=== PATIENT | male | born 1980 | race Caucasian/White ===

== ENCOUNTER 2017-03-11 14:04 | Emergency (ER) | payer OTHER ==
--- NOTE | 2017-03-11 14:43 | ER Document Report ---
ED Psych Disorder / Suicide - General Chief Complaint: Psych Problem Stated Complaint: IVC WITH PAPERS Time Seen by Provider: 03/11/17 14:26 Notes: Patient is a 36-year-old male who presents emergency department with law enforcement on IVC papers after a incident at his family home. Per paperwork patient threatened a JAYCEE with a handgun saying today was the day indicating a desire to harm himself in those around him. Patient states that he was tased in order to safely restrain him. Otherwise he denies any pain. Admits to mild discomfort where the taser hit him but otherwise denies any chest pain, back pain. Regarding mental health, patient states that he does have a history of PTSD and depression and daily alcohol use. Patient withholding details about how much alcohol he normally drinks and if he drinks every single day. His states that he does drink quite frequently and no specific alcohol. Otherwise denies any drug use or history of IV drug use. Patient has been noncompliant with home medications that he takes for depression and anxiety. Currently at this time he denies any suicidal ideations. - Related Data Allergies/Adverse Reactions: ibuprofen Allergy (Verified 03/11/17 14:31) Past Medical History - Social History Smoking Status: Current Every Day Smoker Frequency of alcohol use: Heavy Drug Abuse: None Family History: Reviewed & Not Pertinent Patient has suicidal ideation: Yes Patient has homicidal ideation: No Renal/ Medical History: Denies: Hx Peritoneal Dialysis Review of Systems - Review of Systems Constitutional: No symptoms reported EENT: No symptoms reported Cardiovascular: No symptoms reported Respiratory: No symptoms reported Gastrointestinal: No symptoms reported Genitourinary: No symptoms reported Musculoskeletal: No symptoms reported Skin: See HPI Neurological/Psychological: See HPI Physical Exam - Vital signs Vitals: Temp Pulse Resp BP Pulse Ox 97.6 F 98 16 154/79 H 94 03/11/17 17:11 03/11/17 17:11 03/11/17 17:11 03/11/17 17:11 03/11/17 17:11 - Notes Notes: PHYSICAL EXAM GENERAL: Alert, interacts well. HEAD: Normocephalic, atraumatic. EYES: Pupils equal, round, and reactive to light. Extraocular movements intact. ENT: Oral mucosa moist, tongue midline. NECK: Full range of motion. Supple. Trachea midline. LUNGS: Clear to auscultation bilaterally, no wheezes, rales, or rhonchi. No respiratory distress. HEART: Regular rate and rhythm. No murmurs, gallops, or rubs. ABDOMEN: Soft, nondistended, nontender. No guarding, rebound, or rigidity.. Bowel sounds present in all 4 quadrants. EXTREMITIES: Moves all 4 extremities spontaneously. No edema, radial and dorsalis pedis pulses 2/4 bilaterally. No cyanosis. NEUROLOGICAL: Alert and oriented x4. Normal speech. PSYCH: Irritable but compliant and cooperative. Admits to suicidal ideations over the course of the week but currently does not have a plan since he is in the hospital. SKIN: Warm, dry, normal turgor. First-degree irritation noted on the ulnar surface of the left forearm is nontender without any active drainage or bleeding. Course - Re-evaluation Re-evalutation: 03/11/17 1500 Patient is a 36-year-old male who presents emergency department for IVC evaluation. Currently medically cleared. Relaxing comfortably in his room just requesting something to drink. Regarding the irritation of his forearm, this is likely regarding the taser from earlier today. Discussed with patient that we will assist him to keep the area clean and otherwise can be dressed as needed with Band-Aids. 03/11/17 18:50 Received medication recommendations from mental health team who are recommending discontinuation of his home Wellbutrin, Lunesta, Zoloft. Will continue clonidine, Zyprexa and Cogentin and patient will stay in the department for reevaluation in the morning. Patient agreeable with plan and is calm and cooperative at this time. - Vital Signs Vital signs: Temp Pulse Resp BP Pulse Ox 97.6 F 98 16 154/79 H 94 03/11/17 17:11 03/11/17 17:11 03/11/17 17:11 03/11/17 17:11 03/11/17 17:11 - Laboratory Result Diagrams: 03/11/17 14:50 03/11/17 14:50 Laboratory results interpreted by me: 03/11/17 03/11/17 03/11/17 14:50 14:50 14:50 WBC 11.9 H Seg Neutrophils % 87.4 H Lymphocytes % 6.7 L Absolute Neutrophils 10.4 H AST 77 H ALT 94 H Urine Protein 100 H Salicylates < 1.0 L Acetaminophen < 10 L - EKG Interpretation by Me EKG shows normal: Sinus rhythm Rate: Normal Rhythm: NSR When compared to previous EKG there are: No significant change Discharge - Discharge Clinical Impression: Suicidal ideations Depression Qualifiers: Depression Type: unspecified Qualified Code(s): F32.9 - Major depressive disorder, single episode, unspecified Condition: Stable Disposition: PSYCH HOSP/UNIT
[2017-03-11 15:06] LABS: ABSOLUTE LYMPHOCYTES (AUTO) 0.8 10^3/uL (0.5-4.7); ABSOLUTE MONOCYTES (AUTO) 0.7 10^3/uL (0.1-1.4); ABSOLUTE NEUT (AUTO) 10.4 10^3/uL (1.7-8.2); BASOPHILS % (AUTO) 0.2 % (0-2); EOSINOPHILS % (AUTO) 0.1 % (0-6); HEMATOCRIT 45.2 % (37.9-51.0); HEMOGLOBIN 15.9 g/dL (13.5-17.0); HGB HCT DIFFERENCE 2.5; LYMPHOCYTES % (AUTO) 6.7 % (13-45); MEAN CORPUSCULAR HEMOGLOBIN 32.8 pg (27.0-33.4); MEAN CORPUSCULAR HGB CONC 35.2 g/dL (32.0-36.0); MEAN CORPUSCULAR VOLUME 93 fl (80-97); MONOCYTES % (AUTO) 5.6 % (3-13); RED BLOOD COUNT 4.85 10^6/uL (4.35-5.55); RED CELL DISTRIBUTION WIDTH 13.4 % (11.5-14.0); SEGMENTED NEUTROPHILS % (AUTO) 87.4 % (42-78); WHITE BLOOD COUNT 11.9 10^3/uL (4.0-10.5)
[2017-03-11 15:33] LABS: ALANINE AMINOTRANSFERASE 94 U/L (21-72); ALCOHOL 253 mg/dL (NONE DETECTED); ALKALINE PHOSPHATASE 90 U/L (38-126); ANION GAP 16 (5-19); ASPARTATE AMINO TRANSFERASE 77 U/L (17-59); BILIRUBIN,DIRECT 0.4 mg/dL (0.0-0.4); BILIRUBIN,TOTAL 0.7 mg/dL (0.2-1.3); BLOOD UREA NITROGEN 11 mg/dL (7-20); CALCIUM 9.4 mg/dL (8.4-10.2); CARBON DIOXIDE 26 mmol/L (22-30); CHLORIDE 101 mmol/L (98-107); CREATININE RESULT 0.77 mg/dL (0.52-1.25); GLUCOSE 105 mg/dL (75-110); POTASSIUM 4.3 mmol/L (3.6-5.0); SODIUM 143.2 mmol/L (137-145); TOTAL PROTEIN 7.8 g/dL (6.3-8.2)
[2017-03-11 16:27] LABS: APPEARANCE,URINE CLEAR; BILIRUBIN,URINE NEGATIVE (NEGATIVE); GLUCOSE, URINE NEGATIVE (NEGATIVE); KETONES,URINE NEGATIVE (NEGATIVE); LEUKOCYTE ESTERASE,URINE NEGATIVE (NEGATIVE); NITRITE,URINE NEGATIVE (NEGATIVE); PROTEIN,URINE 100 mg/dL (NEGATIVE); URINE SPECIFIC GRAVITY 1.011; UROBILINOGEN,URINE NEGATIVE mg/dL (<2.0)
[2017-03-11 16:53] LABS: URINE BARBITURATES SCREEN NEGATIVE; URINE METHADONE SCREEN NEGATIVE; URINE OPIATES LOW NEGATIVE; URINE PHENCYCLIDINE SCREEN NEGATIVE
[2017-03-11] MEDS ORDERED: OLANZAPINE 5 MG TABLET PO ONE (18:10)
[2017-03-11] MEDS ORDERED: CLONIDINE HCL 0.1 MG TABLET PO ONE (18:10)
[2017-03-11] MEDS ORDERED: BENZTROPINE MESYLATE 1 MG TABLET PO ONE (18:10)
--- NOTE | 2017-03-11 19:43 | EKG REPORT ---
SEVERITY:- NORMAL ECG - SINUS RHYTHM : Confirmed by: Phil Russell MD 11-Mar-2017 19:42:57
[2017-03-11] MEDS ORDERED: CLONIDINE HCL 0.1 MG TABLET PO SCH (22:00)
[2017-03-12] MEDS ORDERED: OLANZAPINE 5 MG TABLET PO SCH (10:00)
[2017-03-12] MEDS ORDERED: BENZTROPINE MESYLATE 1 MG TABLET PO SCH (10:00)
--- NOTE | 2017-03-12 10:47 | ER Document Report ---
Doctor's Note Notes: 03/12/17 10:46 Rounds: Chart reviewed and patient interviewed. Patient acknowledges drinking heavily. His alcohol level was 253. Only other lab tests abnormal was a white count of 11,900 which is not clinically significant in this patient. Vital signs are all normal. Patient appears to be medically stable for transfer or discharge. Maye Durant MD
[2017-03-12 13:24] VITALS: BP 138/77
--- NOTE | 2017-03-13 19:05 | PSYCHOLOGICAL NOTE ---
Psych Note - Psych Note Psych Note: Patient is a 36 year old male in the ED on IVC for alcohol intoxication, SI, having a loaded weapon on him and LE concern he was going to discharge it on them. Patient reported feeling groggy today. He denied current SI/HI. He identified he remembered everything from yesterday and why he is in the ED. He stated he needs help with not wanting alcohol. His was present and also identified she felt the main issue was substance abuse, specifically alcohol. Patient and identified patient insurance is [employer]. Diagnosis: 303.90 (F10.20) Alcohol Use Disorder, Severe 309.81 (F43.10) Posttraumatic Stress Disorder by History Impression/Plan: Recommendation to maintain IVC given medication changes took place yesterday and him just getting a full days of those changes with this morning administration. Will continue seeking placement. Consulted with Dr. Perez regarding the management and care of patient. ED Physician in agreement with recommendation.
--- NOTE | 2017-03-13 19:23 | PSYCHOLOGICAL NOTE ---
Psych Note - Psych Note Psych Note: Patient is a 36-year-old male brought to the Emergency Department, under IVC, by law enforcement. Patient and reported patient was texting his neighbor making suicidal statements and the neighbor contacted his who in turn contacted the patients who was at work. [facility] was contacted and when they were informed the patient was armed with a gun they refused to attend the scene. [facility] [employer] contacted law enforcement who responded to the wifes home. Patient reported law enforcement used a taser on him after arriving on scene. He initially denied he made any movements precipitating the deployment of the taser but eventually admitted he reached his arm around towards his back to scratch an itch where he had a gun holstered. He indicated he understood why law enforcement felt like they needed to deploy the taser. He reported he was drinking and admitted he had suicidal ideations and the only thing keeping him from acting on the ideations was not wanting his daughter to find him when she returned from school. Patient reported he was a [employer] who was discharged in October of 2015. He reported he has been to the [facility] in [facility]. He indicated he was prescribed Wellbutrin, Zoloft, Lunesta and Clonidine but reported he had not taken any of his medications in the last five days. He reported his medications had been the same for several months, but he was not consistent in taking them. He reported previous passive suicidal ideations with no action but endorsed current suicidal ideations with plans to use a gun and access to weapons. Patient denied previous psychiatric inpatient hospitalizations. Patient reported smoking marijuana with the last time being a few weeks ago. Patient indicated he drinks a 12 pack of beer daily and has been drinking at this amount since 2009. Patient reported current stressors to include separation from his , since August, and homelessness. Patients at bedside during interview. Patients reported both of their children resided solely with her since the separation. Patient indicated he had been drinking about a beer an hour since the morning. Intake serum alcohol was 253 as indicated by lab results. Patient was alert and oriented to person, place, time and circumstance. Mood was tearful, guarded and irritated. Affect was mood congruent. He denied auditory/visual hallucinations. No delusions were noted. Thought processes were linear, rational and organized. Conversational speech was within normal limits for rate, tone and prosody. Intellectual abilities were estimated within average range. Attention and concentration were within normal limits. Insight, judgement and impulse control were poor. 1. 309.81 (F43.10) Post Traumatic Stress Disorder Impression/Plan: Patient to continue under IVC due to suicidal ideation with plan and access to weapon. Patient is felt to be a real, continued threat to self and others. Will require inpatient hospitalization for stabilization. Consulted with Dr. Perez in the treatment and care of this patient. ED physician in agreement with recommendations and disposition.
== END 2017-03-12 13:20 ==
LOC: ER 14:04
DX: Z04.6 Encounter for general psychiatric examination, requested by authority (principal); F32.9 Major depressive disorder, single episode, unspecified; R45.851 Suicidal ideations; F41.9 Anxiety disorder, unspecified; T43.296A Underdosing of other antidepressants, initial encounter; T43.226A Underdosing of selective serotonin reuptake inhibitors, initial encounter; T42.6X6A Underdosing of other antiepileptic and sedative-hypnotic drugs, initial encounter; Z91.14 Patient's other noncompliance with medication regimen; T75.4XXA Electrocution, initial encounter; Y35.893A Legal intervention involving other specified means, suspect injured, initial encounter; Y93.89 Activity, other specified; Y92.009 Unspecified place in unspecified non-institutional (private) residence as the place of occurrence of the external cause; F17.200 Nicotine dependence, unspecified, uncomplicated
CPT/HCPCS: 36415; 80053; 80307; 81001; 85025; 93005; 93010; 99284

== ENCOUNTER → 2018-03-28 | Outpatient (CLI) | payer OTHER ==
[2018-03-28 11:39] LABS: ABSOLUTE BASOPHILS # (AUTO) 0.1 10^3/uL (0.0-0.2); ABSOLUTE EOSINOPHILS # (AUTO) 0.1 10^3/uL (0.0-0.6); ABSOLUTE LYMPHOCYTES (AUTO) 1.5 10^3/uL (0.5-4.7); ABSOLUTE MONOCYTES (AUTO) 0.5 10^3/uL (0.1-1.4); ABSOLUTE NEUT (AUTO) 2.7 10^3/uL (1.7-8.2); BASOPHILS % (AUTO) 1.2 % (0-2); EOSINOPHILS % (AUTO) 2.1 % (0-6); HEMATOCRIT 45.6 % (37.9-51.0); HEMOGLOBIN 15.8 g/dL (13.5-17.0); LYMPHOCYTES % (AUTO) 31.3 % (13-45); MEAN CORPUSCULAR HEMOGLOBIN 33.1 pg (27.0-33.4); MEAN CORPUSCULAR HGB CONC 34.6 g/dL (32.0-36.0); MEAN CORPUSCULAR VOLUME 96 fl (80-97); MONOCYTES % (AUTO) 10.2 % (3-13); PLATELET COUNT 270 10^3/uL (150-450); RED BLOOD COUNT 4.76 10^6/uL (4.35-5.55); SEGMENTED NEUTROPHILS % (AUTO) 55.2 % (42-78); TOTAL CELLS COUNTED % (AUTO) 100 %; WHITE BLOOD COUNT 4.9 10^3/uL (4.0-10.5)
--- NOTE | 2018-03-28 12:01 | RADIOLOGY REPORT (SQ) ---
EXAM DESCRIPTION: CHEST PA/LATERAL COMPLETED DATE/TIME: 03/28/2018 11:47 am REASON FOR STUDY: PRE-OP COMPARISON: None. EXAM PARAMETERS: NUMBER OF VIEWS: two views TECHNIQUE: Digital Frontal and Lateral radiographic views of the chest acquired. RADIATION DOSE: NA LIMITATIONS: none FINDINGS: LUNGS AND PLEURA: No opacities, masses or pneumothorax. No pleural effusion. MEDIASTINUM AND HILAR STRUCTURES: No masses or contour abnormalities. HEART AND VASCULAR STRUCTURES: Heart normal size. No evidence for failure. BONES: No acute findings. HARDWARE: None in the chest. OTHER: No other significant finding. IMPRESSION: NO SIGNIFICANT RADIOGRAPHIC FINDING IN THE CHEST. TECHNICAL DOCUMENTATION: JOB ID: [id number] [email or web address] All Rights Reserved Reading location - IP/workstation name: [email or web address]
[2018-03-28 12:13] LABS: ANION GAP 11 (5-19); BLOOD UREA NITROGEN 12 mg/dL (7-20); CALCIUM 9.8 mg/dL (8.4-10.2); CARBON DIOXIDE 26 mmol/L (22-30); CHLORIDE 105 mmol/L (98-107); GLUCOSE 91 mg/dL (75-110); POTASSIUM 4.4 mmol/L (3.6-5.0)
--- NOTE | 2018-03-28 22:55 | EKG REPORT ---
SEVERITY:- NORMAL ECG - SINUS RHYTHM : Confirmed by: Eliane Price MD 28-Mar-2018 22:53:49
== END ==
LOC: OD 10:42
PROVIDERS: ATTEND Family Medicine
DX: Z01.810 Encounter for preprocedural cardiovascular examination (principal); Z01.812 Encounter for preprocedural laboratory examination; Z01.818 Encounter for other preprocedural examination
CPT/HCPCS: 36415; 71046; 80048; 85025; 93005; 93010